=== PATIENT | male | born 1985 | race African-American/Black ===

== ENCOUNTER 2018-06-04 22:04 | Emergency (ER) | payer OTHER ==
[~2018-06-04] VITALS: Ht 167.6 cm; Wt 77.1 kg
[~2018-06-04 22:04] MED LIST: FLEXERIL PO; NAPROSYN500 MG; TRAMADOL 50 MG50 MG PO
[2018-06-04] MEDS ORDERED: NOHOMEMEDICATIONS (22:17)
[2018-06-04 23:42] VITALS: BP 129/84
== END 2018-06-04 23:42 | disposition home or self-care (01) ==
LOC: M.ERS 22:04
DX: R11.10 Vomiting, unspecified (principal); F11.90 Opioid use, unspecified, uncomplicated; F17.210 Nicotine dependence, cigarettes, uncomplicated

== ENCOUNTER 2018-06-05 11:18 | Emergency (ER) | payer OTHER ==
[~2018-06-05] VITALS: Ht 167.6 cm; Wt 77.1 kg
[~2018-06-05 11:18] MED LIST changes: +NOHOMEMEDICATIONS
[2018-06-05 11:40] VITALS: BP 125/86
== END 2018-06-05 11:43 ==
LOC: M.ERS 11:18
DX: R51 Headache (principal); R11.0 Nausea

== ENCOUNTER 2018-06-06 03:10 | Emergency (ER) | payer OTHER ==
[~2018-06-06] VITALS: Ht 167.6 cm; Wt 72.6 kg
[2018-06-06 04:31] VITALS: BP 125/83
--- NOTE | 2018-06-06 11:45 | EKG ---
[place] [address] ELECTROCARDIOGRAM REPORT Name: DREW SHERWOODON Lizbeth Room: [facility]#: [id number] Admission: 06/06/18 Attend Phys: Discharge: 06/06/18 Date of : 89 Report #: [id number] THIS REPORT FOR: //name// [facility] ED Test Date: 2018-06-06 Test Time: 03:15:04 Pat Name: FELICITY SHERWOOD Department: Room: Gender: Band Tumbler: TOMÁS : 1985 Requested By: Yudelka Byers Order Number: [id number] Reading MD: Kelvin Meyer Measurements Intervals [place] Rate: 57 P: 50 [place]: 115 QRS: 42 QRSD: 81 T: 38 QT: 387 QTc: 377 Interpretive Statements Sinus rhythm early repolarization Borderline short [place] interval Probable left atrial enlargement No previous ECG available for comparison Electronically Signed On 06-06-2018 11:44:57 PARTS SALES MANAGER by Kelvin Meyer [email or web address] <ELECTRONICALLY SIGNED> By: Kelvin Meyer MD, [facility] 06/06/18 1144 0315 0315 Kelvin Meyer MD, FACC /EPI
== END 2018-06-06 04:33 | disposition home or self-care (01) ==
LOC: M.ERS 03:10
DX: R07.89 Other chest pain (principal); F17.210 Nicotine dependence, cigarettes, uncomplicated; Z88.8 Allergy status to other drugs, medicaments and biological substances

== ENCOUNTER 2018-08-23 12:52 | Emergency (ER) | payer OTHER ==
[~2018-08-23] VITALS: Ht 172.7 cm; Wt 65.3 kg
[2018-08-23] MEDS ORDERED: RISPERDAL2 MG PO (13:00)
[2018-08-23] MEDS ORDERED: TRAMADOL 50 MG50 MG PO (13:00)
[2018-08-23] MEDS ORDERED: TRAZODONE 150150 M1 PO (13:00)
[2018-08-23 13:18] LABS: ABSOLUTE BASOPHILS 0.1 thou/uL (0.0-0.2); ABSOLUTE LYMPHOCYTES 1.3 thou/uL (0.8-5.3); ABSOLUTE MONOCYTES 0.6 thou/uL (0.0-1.2); BASOPHILS 0.7 %; EOSINOPHILS 0.3 %; HEMATOCRIT 42.2 % (42.0-52.0); HEMOGLOBIN 13.6 gm/dL (14.0-18.0); LYMPHOCYTES 16.2 %; MCH 24.6 pg (26.0-34.0); MCHC 32.1 g/dL (28.0-37.0); MCV 76.5 fL (80.0-100.0); MONOCYTES 7.2 %; MPV 8.3 fl. (7.2-11.1); NUCLEATED RBCS 0 /100WBC; PLATELET COUNT* 368 thou/uL (150-400); POLYS 75.6 %; RBC 5.52 mil/uL (4.50-6.00); RDW-CV 14.8 % (10.5-14.5)
[2018-08-23 13:41] LABS: ANION GAP 9 mmol/L (7-16); BUN 11 mg/dL (7-18); CALCIUM 9.8 mg/dL (8.5-10.1); CHLORIDE 105 mmol/L (98-107); CO2 25 mmol/L (21-32); CREATININE 0.9 mg/dL (0.6-1.3); GLUCOSE 106 mg/dL (70-99); POTASSIUM 4.2 mmol/L (3.5-5.1); SODIUM 139 mmol/L (136-145); TROPONIN-I LEVEL <0.06 ng/mL (<0.06)
[2018-08-23 13:42] LABS: ALBUMIN 3.5 g/dL (3.4-5.0); ALKALINE PHOSPHATASE 81 U/L (46-116); LIPASE 597 U/L (73-393); MAGNESIUM 2.1 mg/dL (1.8-2.4); NT-PRO BRAIN NAT PEPTIDE 20 pg/mL (<300); SGOT 78 U/L (15-37); SGPT 167 U/L (30-65); TOTAL BILIRUBIN 0.3 mg/dL (<0.1-1.0); TOTAL PROTEIN 7.6 g/dL (6.4-8.2)
[2018-08-23 14:55] LABS: URINE BILIRUBIN NEGATIVE (Negative); URINE BLOOD NEGATIVE (Negative); URINE CLARITY CLEAR; URINE COLOR YELLOW; URINE GLUCOSE-RANDOM NEGATIVE (Negative); URINE KETONES TRACE (Negative); URINE LEUKOCYTES-REFLEX 1+ (Negative); URINE PROTEIN NEGATIVE (Negative); URINE SPECIFIC GRAVITY 1.025 (1.005-1.030)
[2018-08-23 14:57] LABS: URINE NITRITE-REFLEX POSITIVE (Negative)
[2018-08-23 15:02] LABS: AMP/METHAMP Negative (Negative); BARBITURATES Negative (Negative); BENZODIAZEPINES Negative (Negative); COCAINE Negative (Negative); METHADONE Negative (Negative); OPIATES POSITIVE (Negative); PCP Negative (Negative); THC Negative (Negative)
[2018-08-23 15:03] LABS: BACTERIA-REFLEX >30 Many /HPF (None Seen)
[2018-08-23 15:04] LABS: SQUAMOUS 0-3 Few /LPF (0-3); YEAST-REFLEX Present (None Seen)
[2018-08-23 15:05] LABS: URINE WBC-REFLEX 6-15 Few /HPF (0-5)
[2018-08-23 15:06] LABS: CASTS None Seen /LPF (None Seen); CRYSTALS None Seen /LPF (None Seen); MUCUS 0-3 Light strn/LPF (None Seen); URINE RBC 0-2 Rare /HPF (0-2)
[2018-08-23] MEDS ORDERED: DOXYCYCLINE 10100 MG PO (15:50)
[2018-08-23 15:56] VITALS: BP 129/88
--- NOTE | 2018-08-23 16:27 | EKG ---
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
--- NOTE | 2018-08-23 16:29 | EKG ---
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 Analyst: : 1985 Requested By: Michel Estrada Order Number: [id number] MD: Kelvin Meyer Measurements Intervals [place] Rate: 61 P: 65 [place]: 109 QRS: 26 QRSD: 91 T: 25 QT: 414 QTc: 417 Interpretive Statements Sinus rhythm Short [place] interval early transition ST elev, probable normal early repol pattern Electronically Signed On 08-23-2018 16:29:39 BED PLACEMENT COORDINATOR by Kelvin Meyer [email or web address] <ELECTRONICALLY SIGNED> By: Kelvin Meyer MD, [facility] 08/23/18 1629 1542 1542 Kelvin Meyer MD, FACC /EPI
== END 2018-08-23 15:56 | disposition home or self-care (01) ==
LOC: M.ERS 12:52
PROVIDERS: Emergency Medicine Emergency Medical Services
DX: R07.89 Other chest pain (principal); N39.0 Urinary tract infection, site not specified; F17.210 Nicotine dependence, cigarettes, uncomplicated; Z88.8 Allergy status to other drugs, medicaments and biological substances